=== PATIENT | male | born 1945 | race Two or more races ===

== ENCOUNTER 2025-02-26 16:59 | Emergency (ER) | payer BC, SELFPAY ==
[2025-02-26 18:09] VITALS: BP 159/79; PULSE 86; RESP 20; TEMP 37; O2SAT 99
--- NOTE | 2025-02-26 18:26 | PD.EDWEAK ---
ED Weakness RME/HPI General Chief complaint: Weakness Stated complaint: Weakness X 10 days, unstable, congested Time Seen by Provider: 02/26/25 18:13 Arrival date/time: 02/26/25 16:59 RME / HPI RME / HPI Narrative: 79-year-old male patient with significant history of rheumatoid arthritis, currently not on medication, was brought in by family for evaluation regarding worsening multiple joint pains. Patient now having difficulty from seated to standing position however once patient is standing patient is able to ambulate without assistance. Patient also complained of nasal congestion. Denies any fever denies any cough denies any other complaints no medication was taken prior to arrival Related Data Previous Rx's ?Medication ?Instructions ?Recorded acetaminophen 325 mg tablet 650 mg (2 x 325 mg) PO QID PRN 02/26/25 (Tylenol) pain #60 tabs dexamethasone 6 mg tablet 6 mg PO QDAY #7 tabs 02/26/25 Allergies Allergy/AdvReac Type Severity Reaction Status Date / Time NKA* Allergy Uncoded 02/26/25 17:05 Review of Systems Review of Systems Narrative Review of Systems: Review of system reviewed and within normal limits except mentioned in HPI ED Exam Narrative Physical exam: VITAL SIGNS: Reviewed. GENERAL APPEARANCE: Alert and interactive, follows commands, no acute distress, HEAD AND FACE: Non-traumatic. ENT: PERRL, pink conjunctivitis, eyelid no trauma, Mucous membrane moist. NECK: Supple, nontender, no nuchal rigidity. CHEST: No tenderness, no crepitus, no paradoxical movement, no retractions. LUNGS: Clear, well ventilated, symmetric, no rales, no wheezing, no ronchi, no stridor, good breath sounds bilaterally. HEART: Regular rate, regular rhythm, no murmur, no gallops. ABDOMEN: Soft, positive bowel sounds, nondistended, no guarding, nontender, no rebound, no masses, RECTAL: Deferred. GENITAL: Deferred. NEUROLOGICAL: Gross motor function intact sensory function intact, Appropriate for age. MUSCULOSKELETAL: low back nontender, full range of motion. EXTREMITIES: Bilateral shoulder tenderness, no swelling or deformity no redness, bilateral wrist and hand tenderness, mild swelling no deformity no redness, full range of motion. SKIN: Color pink, dry, no rash, no lacerations, no abrasions, no contusions. LYMPHATICS: Deferred. Course Quality Measures none Orders Category Date Time Status Dexamethasone Inj [Decadron Inj] Med 02/26/25 18:24 Discontinued 10 mg IM X1 ONE Ketorolac Inj [Toradol Inj] Med 02/26/25 18:24 Discontinued 15 mg IM X1 ONE Vital Signs Vital signs: Vital Signs Temperature 98.6 F 02/26/25 18:09 Pulse Rate 86 02/26/25 18:09 Respiratory Rate 20 02/26/25 18:09 Blood Pressure 159/79 H 02/26/25 18:09 Pulse Oximetry (%) 99 02/26/25 18:09 Oxygen Delivery Method Room Air 02/26/25 18:09 Weakness MDM Narrative MDM Narrative:: 79-year-old male patient with significant history of rheumatoid arthritis, currently not on medication, was brought in by family for evaluation regarding worsening multiple joint pains. Patient now having difficulty from seated to standing position however once patient is standing patient is able to ambulate without assistance. Patient also complained of nasal congestion. Denies any fever denies any cough denies any other complaints no medication was taken prior to arrival Imaging workup is not dilated patient is not showing any clinical sign of infection. Patient is probably having polyarthralgia. Secondary to rheumatoid arthritis flare up Was given Toradol, Decadron, with significant improvement of symptoms patient is ambulatory unaided. . Patient data External records reviewed:: None Clinical information provided by:: patient Social determinants that could affect healthcare access:: none Patient has the following chronic illnesses:: History of rheumatoid arthritis How is presenting disease/condition affected by chronic disease/condition?: exacerbated by Evaluation data The following diagnostics were reviewed and interpreted by me:: other (specify) Lab and/or radiology exams considered but not ordered:: None Interpretation Summary: None Medications / Prescriptions Medications or Prescriptions considered but not ordered:: None Medication administrations:: Medication Administration History Discontinued Medications Dexamethasone Sodium Phosphate (Dexamethasone Sod Phos Inj 10 Mg/Ml Vial) 10 mg IM X1 ONE Stop: 02/26/25 18:25 Last Admin: 02/26/25 18:47 Dose: 10 mg Documented By: ELVIA Ketorolac Tromethamine (Ketorolac Inj 60 Mg/2 Ml Vial) 15 mg IM X1 ONE Stop: 02/26/25 18:25 Last Admin: 02/26/25 18:47 Dose: 15 mg Documented By: ELVIA Toradol injection and Decadron Consultations Consultation(s) initiated? (list below): No Diagnosis Weakness Differential Diagnosis: other (Polyarthralgia, rheumatoid arthritis flare,) Most likely diagnosis given after review of the tests above:: Polyarthralgia, rheumatoid arthritis flare Admission Indicated Admission indicated?: not indicated Explain why admission is indicated or not indicated:: Stable Admission Request Was there a request for admission?: No Disposition Plan Disposition Plan: Discharge Discharge Attestation Discharge Attestation: The patient and all family members were given an opportunity to ask questions and understood the discharge instructions. Discharge instructions specifically effects, indications for sooner follow up or return to the emergency department, and the expected course of current diagnosis. Patient condition: Stable Discharge Plan Plan Patient Disposition: HOME (Self Care) Discharge Disposition comment: stable Prescriptions/Referrals Prescriptions/Med Rec: New dexamethasone 6 mg tablet 6 mg PO QDAY Qty: 7 0RF acetaminophen [Tylenol] 325 mg tablet 650 mg PO QID PRN (Reason: pain) Qty: 60 0RF Referrals: Ashvin Otero [Primary Care Provider] - In 1 week Problem List Clinical Impression: Polyarthralgia Patient/Caregiver Discharge Instructions Discharge Activity: activity as tolerated Education Materials: Measuring Your Pain Additional Instructions: Thank you for the opportunity for serving you today. You are stable for discharged . You are advised to: Follow-up with your PCP in 1 to 2 days and as per referral to retail sales vitamin consultant Return to ED for worsening of symptoms Increase oral fluids Take medication as prescribed Print Language: Kinyarwanda Stand Alone Forms: Adriana Award Info., Patient Portal Info Letter HAZEL/KELLIE Supervising Physician HAZEL/KELLIE Supervising Physician: MD Kenyon
[2025-02-26] MEDS: DEXAMETHASONE SOD PHOS INJ 10 MG/ML VIAL IM (18:47)
[2025-02-26] MEDS: KETOROLAC INJ 60 MG/2 ML VIAL 15 MG IM (18:47)
== END 2025-02-26 20:15 | disposition home or self-care (01) ==
PROVIDERS: Emergency Provider Emergency Medicine; PCP Physician Assistant
DX: M25.50 Pain in unspecified joint (principal); M06.9 Rheumatoid arthritis, unspecified
CPT/HCPCS: 96372; 99283; J1100; J1885

== ENCOUNTER → 2025-05-12 | Outpatient (CLI) | payer BC, SELFPAY ==
--- NOTE | 2025-05-12 14:10 | XR_ITS ---
Examination: Bone densitometry Date and time of exam: May 12, 2025, 1357 hours INDICATIONS: 80-year-old male with diagnosis age-related osteoporosis, history of rheumatoid arthritis taking steroid cream, vitamin D 1 month, also diagnosis multiple myeloma Technique: Lumbar spine and hip total bone mineralization values of an calculated. Peak reference and age match control results have been displayed. Findings: Lumbar spine total bone mineralization is 0.900 gm/cm2. This is 1.7 standard deviations below peak reference. This is 0.6 standard deviations below age-matched controls. Hip total bone mineralization is 0.810 gm/cm2 This is 1.9 standard deviations below peak reference. This is 0.9 standard deviations below age-matched controls Impression: There is osteopenia based on lumbar spine measurements. There is osteopenia based on hip measurements
== END | disposition home or self-care (01) ==
LOC: CDIM 13:25
PROVIDERS: PCP Specialist; Referring Provider Internal Medicine; Visit Provider Internal Medicine
DX: Z13.820 Encounter for screening for osteoporosis (principal); M85.89 Other specified disorders of bone density and structure, multiple sites
CPT/HCPCS: 77080

== ENCOUNTER → 2025-05-18 | Outpatient (CLI) | payer MEDICARE, MEDICAID, SELFPAY ==
--- NOTE | 2025-05-18 15:55 | XR_ITS ---
Examination: Knee bilateral, 6 views Technique: Knee AP, lateral, oblique each knee total 6 views Date and time of exam: May 18, 2025 1600 hours INDICATION: Bilateral knee pain beginning 2 years ago FINDINGS: Prominent osteopenia Advanced right knee tricompartment osteoarthritis Moderate left knee tricompartment osteoarthritis No fractures IMPRESSION: Right knee advanced tricompartment osteoarthritis Left knee moderate tricompartment osteoarthritis
== END | disposition home or self-care (01) ==
PROVIDERS: PCP Internal Medicine; Referring Provider Internal Medicine; Visit Provider Internal Medicine
DX: M17.0 Bilateral primary osteoarthritis of knee (principal); G89.29 Other chronic pain
CPT/HCPCS: 73562

== ENCOUNTER → 2025-06-17 | Outpatient (CLI) | payer MEDICARE, MEDICAID, SELFPAY ==
--- NOTE | 2025-06-17 13:02 | XR_ITS ---
EXAMINATION: Metastatic bone survey, 15 views TECHNIQUE: Upright PA chest, PA, left lateral skull, AP pelvis, AP right femur, AP left femur, AP right tibia fibula, AP left tibia fibula, AP right humerus, AP left humerus, AP right forearm, AP left forearm, lateral lumbar, lateral thoracic, lateral cervical spine total 15 views Date and time: May 18, 2025, 1313 hours INDICATIONS: Diagnosis other specific disorders involving the immune system FINDINGS: Moderate osteopenia Normal heart size Lungs are clear Intact cranial vault Mild bilateral hip osteoarthritis Intact hips and pelvis No lesions involving the femurs the tibia fibula is humerus or forearms No cervical thoracic or lumbar pathologic compressions or osteolytic lesions IMPRESSION: Moderate osteopenia No osteolytic or osteoblastic lesions noted
== END | disposition home or self-care (01) ==
PROVIDERS: PCP Internal Medicine Hematology & Oncology; Referring Provider Internal Medicine Hematology & Oncology; Visit Provider Internal Medicine Hematology & Oncology
DX: M85.80 Other specified disorders of bone density and structure, unspecified site (principal)
CPT/HCPCS: 77074

== ENCOUNTER → 2025-07-10 | Outpatient (CLI) | payer MEDICARE, MEDICAID, SELFPAY ==
--- NOTE | 2025-07-10 09:00 | XR_ITS ---
Examination: CT chest with intravenous contrast CT abdomen with intravenous contrast CT pelvis with intravenous contrast 2-D coronal and sagittal reconstructions Time of exam: July 10, 2025, 1024 hours, comparison CT abdomen pelvis March 02, 2016 INDICATIONS: Diagnosis other specific disorders involving the immune system Serum enzymes elevated, hyperbilirubinemia CTDI: vol (mGy) : 10.4 DLP: (mGycm): 529 Technique: Multiple axial images of the chest, abdomen and pelvis with intravenous contrast, 3.0 mm slice thickness. Images obtained post intravenous injection Isovue 370 60 cc. 2-D sagittal and coronal reconstructions. Low dose protocols were performed. One or more of the following dose reduction techniques were used; automated exposure control, adjustment of the mA and/or KV according to patient size, use of iterative reconstruction technique. Findings: No thoracic aortic aneurysm dilatation Pulmonary artery opacification is reduced No mediastinal lymphadenopathy No pneumonia or pulmonary edema or pleural disease no visualized liver lesions Contracted gallbladder No extrahepatic biliary tract dilatation No pancreatic mass Normal adrenal glands No renal or ureteral calculi, no hydronephrosis Aorta normal size No pericecal inflammatory change Normal appendix No bowel obstruction Contracted urinary bladder Mild prostatomegaly Left inguinal hernia containing sigmoid colon, no incarcerated bowel or bowel obstruction Severe osteopenia IMPRESSION: No mediastinal lymphadenopathy No pneumonia or pulmonary edema or pleural disease. No extrahepatic biliary tract dilatation, I would still recommend hepatobiliary sonography follow-up Normal appendix No bowel obstruction or diverticulitis Left inguinal hernia containing sigmoid colon, no incarcerated bowel or bowel obstruction
== END | disposition home or self-care (01) ==
PROVIDERS: PCP Internal Medicine Hematology & Oncology; Referring Provider Internal Medicine Hematology & Oncology; Visit Provider Internal Medicine Hematology & Oncology
DX: K40.90 Unilateral inguinal hernia, without obstruction or gangrene, not specified as recurrent (principal)
CPT/HCPCS: 71260; 74177; A4649; Q9967